=== PATIENT | female | born 2000 | race Two or more races ===

== ENCOUNTER 2022-05-01 12:09 | Emergency (ER) | payer MEDICAID, OTHER ==
[~2022-05-01] VITALS: Ht 157.5 cm; Wt 63.0 kg
[2022-05-01 15:40] LABS: Urine Bacteria NONE SEEN /hpf (None Seen); Urine Blood 2+ /uL (Negative); Urine Specific Gravity 1.014 (1.001-1.035); Urine WBC 988 /hpf (0 - 5); Urine WBC Clumps PRESENT /hpf (None Seen)
[2022-05-01] MEDS ORDERED: cefTRIAXone SOD 1,000 MG VL IM ONE (17:00)
[2022-05-01] MEDS ORDERED: KETOROLAC TROMETH 30 MG/ML 1ML VIAL IV ONE (17:00)
[2022-05-01] MEDS ORDERED: KETOROLAC TROMETH 30 MG/ML 1ML VIAL IM ONE (17:00)
[2022-05-01 19:30] VITALS: BP 138/72
== END 2022-05-01 19:43 | disposition home or self-care (01) ==
LOC: ER 12:09
DX: N39.0 Urinary tract infection, site not specified (principal)
CPT/HCPCS: 81001; 96372; 99284; J0696; J1885